=== PATIENT | male | born 1970 | race Caucasian/White ===

== ENCOUNTER 2018-10-15 19:27 | Emergency (ER) | payer BC ==
[~2018-10-15] VITALS: Ht 175.3 cm; Wt 97.0 kg
[2018-10-15 19:29] VITALS: BP 134/75
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
[2018-10-15] MEDS ORDERED: RABIES IMMUNE GLOBULIN/PF 150 UNITS/ML, 2ML IM ONE (20:00)
[2018-10-15] MEDS ORDERED: RABIES VACCINE /PF 2.5 UNITS IM-VACC ONE (20:00)
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
== END 2018-10-15 20:58 | disposition home or self-care (01) ==
LOC: ED 20:52
DX: Z20.3 Contact with and (suspected) exposure to rabies (principal)
CPT/HCPCS: 99281

== ENCOUNTER 2018-10-21 19:04 | Emergency (ER) | payer BC ==
[~2018-10-21] VITALS: Ht 175.3 cm; Wt 97.1 kg
[2018-10-21 19:16] VITALS: BP 130/77
[2018-10-21] MEDS ORDERED: RABIES IMMUNE GLOBULIN/PF 150 UNITS/ML, 2ML IM ONE (19:30)
[2018-10-21] MEDS ORDERED: RABIES VACCINE /PF 2.5 UNITS IM-VACC ONE (19:30)
[2018-10-21] MEDS ORDERED: RABIES IMMUNE GLOBULIN/PF 300 UNITS/ML,1ML IM ONE (21:00)
== END 2018-10-21 21:28 | disposition home or self-care (01) ==
LOC: ED 21:15
DX: Z20.3 Contact with and (suspected) exposure to rabies (principal); Z23 Encounter for immunization
CPT/HCPCS: 90375; 90471; 90675; 96372

== ENCOUNTER 2018-10-24 22:39 | Emergency (ER) | payer BC ==
[~2018-10-24] VITALS: Ht 175.3 cm; Wt 95.1 kg
[2018-10-24 22:40] VITALS: BP 130/82
== END 2018-10-24 23:29 | disposition home or self-care (01) ==
LOC: ED 23:05
DX: Z23 Encounter for immunization (principal)
CPT/HCPCS: 90471; 90675; 99283

== ENCOUNTER 2018-10-28 21:12 | Emergency (ER) | payer BC ==
[~2018-10-28] VITALS: Ht 175.3 cm; Wt 87.7 kg
[2018-10-28 21:15] VITALS: BP 122/73
== END 2018-10-28 22:07 | disposition home or self-care (01) ==
LOC: ED 21:37
DX: Z23 Encounter for immunization (principal); Z20.3 Contact with and (suspected) exposure to rabies
CPT/HCPCS: 90471; 90675; 99283

== ENCOUNTER 2018-11-05 23:50 | Emergency (ER) | payer BC ==
[~2018-11-05] VITALS: Ht 175.3 cm; Wt 95.6 kg
[2018-11-05 23:53] VITALS: BP 114/73
== END 2018-11-06 00:52 | disposition home or self-care (01) ==
LOC: ED 11-06 00:35
DX: Z23 Encounter for immunization (principal)
CPT/HCPCS: 90471; 90675; 99283

== ENCOUNTER 2020-03-30 10:18 | Emergency (ER) | payer BC ==
[~2020-03-30] VITALS: Ht 175.3 cm; Wt 94.6 kg
[2020-03-30] MEDS ORDERED: FAMOTIDINE 20 MG TABLET PO ONE (11:00)
[2020-03-30] MEDS ORDERED: FAMOTIDINE 20 MG TABLET ONE (11:10)
[2020-03-30 11:25] VITALS: BP 105/69
== END 2020-03-30 11:47 | disposition home or self-care (01) ==
LOC: ED 11:08
DX: T78.49XA Other allergy, initial encounter (principal); X58.XXXA Exposure to other specified factors, initial encounter
CPT/HCPCS: 99284; J7512; Q0177

== ENCOUNTER 2020-05-11 14:48 | Inpatient (IN) | payer BC ==
[~2020-05-11] VITALS: Ht 175.3 cm; Wt 90.5 kg
[2020-05-11 15:40] LABS: BASOPHILS % (AUTO) 1 % (0-1); EOSINOPHILS % (AUTO) 3 % (1-7); LYMPHOCYTES % (AUTO) 9 % (22-44); MEAN CORPUSCULAR HEMOGLOBIN 30.2 pg (27.5-34.5); MEAN CORPUSCULAR HGB CONC 33.9 g/dL (33.2-36.2); MEAN PLATELET VOLUME 9.1 fL (7.4-10.4); MONOCYTES % (AUTO) 11 % (2-9); NEUTROPHILS % (AUTO) 76 % (42-75); PLATELET COUNT 282 x10^3/uL (130-400); RED BLOOD COUNT 4.42 x10^6/uL (4.38-5.82); RED CELL DISTRIBUTION WIDTH 12.7 % (9.4-14.8)
[2020-05-11 15:45] LABS: MD NO
[2020-05-11 16:05] LABS: CHLORIDE 105 mmol/L (98-107)
[2020-05-11 16:16] LABS: ALANINE AMINOTRANSFERASE 24 U/L (12-78); ALBUMIN 2.7 g/dL (3.4-5.0); ALKALINE PHOSPHATASE 101 U/L (45-117); ANION GAP 9 mmol/L (5-15); BILIRUBIN,TOTAL 0.2 mg/dL (0.2-1.0); CALCIUM 8.6 mg/dL (8.5-10.1); CREATININE 1.15 mg/dL (0.7-1.3); TOTAL PROTEIN 7.9 g/dL (6.4-8.2); TROPONIN I < 0.015 ng/mL (0.000-0.045)
--- NOTE | 2020-05-11 16:25 | NUR ---
[employer]: PT AMBULATORY TO ROOM FROM LOBBY
--- NOTE | 2020-05-11 18:10 | NUR ---
PT AMBULATED TO BR INDEPENDENTLY AND BACK TO . PT AWAITING TO EDP. NO OTHER NEEDS AT THIS TIME.
[2020-05-11] MEDS ORDERED: SODIUM CHLORIDE 0.9%, 500ML IVBOLUS ONE (19:00)
--- NOTE | 2020-05-11 19:35 | NUR ---
PT TO CT
--- NOTE | 2020-05-11 19:50 | NUR ---
BACK FROM CT
[2020-05-11] MEDS ORDERED: OMNIPAQUE 350 MG/ML, 100ML BOTTLE ONE (19:54)
--- NOTE | 2020-05-11 20:34 | NUR ---
PT RIPPED ALL MONITOR LEADS OFF AND TORE IV FLUID LINE TO GO TO THE BR. PT FOUND WITH BLOOD DRAINING OUT OF PIV ALL OVER BATHROOM AND A TRAIL TO HIS ROOM. PIV DISCONNECTED FROM TORN LINE AND FLUSHED. PIV IS PATENT. NEW MONITOR LEADS PLACED. PT EDUCATED TO USE CALL LIGHT TO EXIT BED. PT VERBALIZES UNDERSTANDING.
--- NOTE | 2020-05-11 20:47 | NUR ---
Report from CONSTANTIN Saba. [facility].
--- NOTE | 2020-05-11 20:55 | NUR ---
At bedside introducing self to pt. Pt on 2 L oxygen satting 98%. Denies needs at this time.
--- NOTE | 2020-05-11 21:26 | NUR ---
Lab at bedside.
[2020-05-11] MEDS ORDERED: ACETAMINOPHEN 325 MG TABLET PO PRN (21:30)
[2020-05-11] MEDS: AZITHROMYCIN 500 MG in SODIUM CHLORIDE 0.9% 250 ML IV SCH (21:30)
[2020-05-11] MEDS ORDERED: DOCUSATE 100 MG CAPSULE PO PRN (21:30)
[2020-05-11] MEDS ORDERED: GUAIFENESIN/DM 200-20MG, 10ML UDC PO PRN (21:30)
[2020-05-11] MEDS ORDERED: LABETALOL 5MG/ML, 20ML IVPush PRN (21:30)
--- NOTE | 2020-05-11 21:45 | NUR ---
SATNAM swabbed and walked to lab. Cleared for regular diet-Provided pt sandwich and chips.
[2020-05-11 21:52] LABS: C-REACTIVE PROTEIN, QUANT 2.4 mg/dL (0.02-0.49)
--- NOTE | 2020-05-11 21:57 | NUR ---
Dr. Carr at bedside.
--- NOTE | 2020-05-11 22:07 | NUR ---
Azithromycin infusing per eMAR. Report called.
--- NOTE | 2020-05-11 22:15 | NUR ---
Pt being transported to room 350
[2020-05-11 22:31] LABS: D-DIMER (DIC) 0.31 ug/mlFEU (0.00-0.52)
[2020-05-11 22:34] LABS: PROTIME 10.9 Seconds (9.6-11.5)
[2020-05-11] MEDS: HEPARIN 5,000 UNITS/ML, 1ML SQ SCH (22:45)
[2020-05-11] MEDS ORDERED: LEVOFLOXACIN/PMX 500MG/100ML 100 ML IV SCH (23:00)
[2020-05-12] MEDS ORDERED: DEXAMETHASONE 4 MG/ML, 5ML IVPush ONE
[2020-05-12 01:11] VITALS: BP 112/66
[2020-05-12 04:58] LABS: BASOPHILS % (AUTO) 0 % (0-1); EOSINOPHILS % (AUTO) 1 % (1-7); LYMPHOCYTES % (AUTO) 7 % (22-44); MEAN CORPUSCULAR HEMOGLOBIN 29.8 pg (27.5-34.5); MEAN CORPUSCULAR HGB CONC 34.1 g/dL (33.2-36.2); MEAN PLATELET VOLUME 9.3 fL (7.4-10.4); MONOCYTES % (AUTO) 6 % (2-9); NEUTROPHILS % (AUTO) 87 % (42-75); PLATELET COUNT 256 x10^3/uL (130-400); RED BLOOD COUNT 4.36 x10^6/uL (4.38-5.82); RED CELL DISTRIBUTION WIDTH 12.9 % (9.4-14.8)
[2020-05-12 05:02] LABS: MD NO
[2020-05-12 05:05] LABS: ANION GAP 7 mmol/L (5-15); CALCIUM 8.5 mg/dL (8.5-10.1); CHLORIDE 107 mmol/L (98-107); CREATININE 0.98 mg/dL (0.7-1.3)
[2020-05-12 06:20] VITALS: BP 95/62
[2020-05-12] MEDS: HEPARIN 5,000 UNITS/ML, 1ML SQ SCH (06:20)
[2020-05-12 06:57] VITALS: BP 96/59
[2020-05-12] MEDS ORDERED: SODIUM CHLORIDE 0.9% 1,000ML IVBOLUS ONE (07:30)
[2020-05-12 07:47] VITALS: BP 106/68
[2020-05-12] MEDS ORDERED: CEFTRIAXONE PMX 1GM/50ML 50 ML IV SCH (08:00)
[2020-05-12] MEDS: SODIUM CHLORIDE 0.9% 1,000 ML IV SCH ×3 (08:21→23:30)
[2020-05-12] MEDS: ENOXAPARIN 40 MG/0.4 ML SQ SCH (08:28)
[2020-05-12] MEDS: NICOTINE 14MG/24 HR PATCH.TD24 TD SCH (08:29)
[2020-05-12] MEDS ORDERED: ASCORBIC ACID 500 MG TABLET PO SCH ×2 (09:00)
[2020-05-12] MEDS ORDERED: CHOLECALCIFEROL 1,000 UNIT TABLET PO SCH (09:00)
[2020-05-12] MEDS ORDERED: THIAMINE 100MG TABLET PO SCH (09:00)
[2020-05-12] MEDS ORDERED: ZINC SULFATE 220 MG CAPSULE PO SCH (09:00)
[2020-05-12] MEDS ORDERED: DEXAMETHASONE 4 MG/ML, 1ML IVPush SCH ×2 (09:00)
[2020-05-12 12:43] VITALS: BP 91/50
[2020-05-12 20:51] VITALS: BP 107/66
[2020-05-12] MEDS: AZITHROMYCIN 500 MG in SODIUM CHLORIDE 0.9% 250 ML IV SCH (21:27)
[2020-05-13 00:32] VITALS: BP 106/57
[2020-05-13 07:50] VITALS: BP 109/68
[2020-05-13] MEDS ORDERED: DOXYCYCLINE 100MG TABLET PO SCH (09:00)
[2020-05-13] MEDS: NICOTINE 14MG/24 HR PATCH.TD24 TD SCH (09:00)
[2020-05-13] MEDS: ENOXAPARIN 40 MG/0.4 ML SQ SCH (09:16)
[2020-05-13] MEDS ORDERED: DOXY100T PO (14:00)
[2020-05-13] MEDS ORDERED: METH4TAB PO (14:00)
== END 2020-05-13 15:09 | disposition home or self-care (01) | DRG 193 ==
LOC: ED 15:55 → EDIP 21:10 → 3N 22:20 → 4EST 05-12 09:43 → DCLOUNGE 05-13 15:04
PROVIDERS: ADMIT Family Medicine; ATTEND Internal Medicine
DX: J18.9 Pneumonia, unspecified organism (principal); J96.01 Acute respiratory failure with hypoxia; Z20.822 Contact with and (suspected) exposure to COVID-19; D63.8 Anemia in other chronic diseases classified elsewhere; E88.09 Other disorders of plasma-protein metabolism, not elsewhere classified; F17.200 Nicotine dependence, unspecified, uncomplicated; N40.0 Benign prostatic hyperplasia without lower urinary tract symptoms; I95.9 Hypotension, unspecified; R53.81 Other malaise; Z88.0 Allergy status to penicillin
CPT/HCPCS: 36415; 71045; 71275; 80048; 80053; 82728; 83605; 83615; 83880; 84145; 84484; 85025; 85049; 85379; 85384; 85610; 85730; 86140; 87040; 93005; 96374; 99285; G0378; J0456; J0696; J1100; J1644; J1650; J1956; Q9967; J7030; J7040; J7050; U0003

== ENCOUNTER 2020-06-02 23:53 | Emergency (ER) | payer BC ==
[~2020-06-02] VITALS: Ht 175.3 cm; Wt 92.8 kg
[~2020-06-02 23:53] MED LIST: DOXY100T PO; METH4TAB PO
[2020-06-02 23:55] VITALS: BP 125/65
[2020-06-03 00:32] LABS: BASOPHILS % (AUTO) 1 % (0-1); EOSINOPHILS % (AUTO) 9 % (1-7); LYMPHOCYTES % (AUTO) 11 % (22-44); MEAN CORPUSCULAR HEMOGLOBIN 29.8 pg (27.5-34.5); MEAN CORPUSCULAR HGB CONC 33.5 g/dL (33.2-36.2); MEAN PLATELET VOLUME 9.6 fL (7.4-10.4); MONOCYTES % (AUTO) 17 % (2-9); NEUTROPHILS % (AUTO) 62 % (42-75); PLATELET COUNT 155 x10^3/uL (130-400); RED CELL DISTRIBUTION WIDTH 14.3 % (9.4-14.8)
[2020-06-03 00:33] LABS: MD NO
[2020-06-03 00:40] LABS: ALBUMIN 2.8 g/dL (3.4-5.0); ANION GAP 7 mmol/L (5-15); CHLORIDE 112 mmol/L (98-107); CREATININE 0.91 mg/dL (0.7-1.3)
[2020-06-03] MEDS ORDERED: DEXAMETHASONE 4 MG TABLET ONE (00:54)
[2020-06-03] MEDS ORDERED: DEXAMETHASONE 4 MG TABLET PO ONE (01:00)
--- NOTE | 2020-06-03 01:06 | NUR ---
Patient given discharge instructions and they have confirmed that they understand the instructions. Patient ambulatory with steady gait.
== END 2020-06-03 01:08 | disposition home or self-care (01) ==
LOC: ED 06-03 00:45
DX: L04.0 Acute lymphadenitis of face, head and neck (principal); J02.9 Acute pharyngitis, unspecified; Z87.891 Personal history of nicotine dependence
CPT/HCPCS: 36415; 80048; 82040; 85025; 99283

== ENCOUNTER 2020-08-05 22:03 | Inpatient (IN) | payer BC ==
[~2020-08-05] VITALS: Ht 175.3 cm; Wt 94.6 kg
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
--- NOTE | 2020-08-05 22:43 | NUR ---
REPORT TO CONSTANTIN MADRID TO ASSUME CARE OF PT. AT THIS TIME.
[2020-08-05] MEDS ORDERED: DIPHENHYDRAMINE 25 MG CAPSULE PO ONE (23:00)
[2020-08-05] MEDS ORDERED: DIPHENHYDRAMINE 25 MG CAPSULE ONE (23:05)
--- NOTE | 2020-08-05 23:13 | NUR ---
PT. MEDICATED PER MAY. X-RAY AT BS.
--- NOTE | 2020-08-05 23:25 | NUR ---
REASSUMING CARE OF PT. FROM CONSTANTIN MADRID AT THIS TIME.
[2020-08-05 23:38] LABS: BASOPHILS % (AUTO) 0 % (0-1); EOSINOPHILS % (AUTO) 1 % (1-7); LYMPHOCYTES % (AUTO) 9 % (22-44); MEAN CORPUSCULAR HEMOGLOBIN 30.9 pg (27.5-34.5); MEAN CORPUSCULAR HGB CONC 34.7 g/dL (33.2-36.2); MEAN PLATELET VOLUME 8.7 fL (7.4-10.4); MONOCYTES % (AUTO) 15 % (2-9); NEUTROPHILS % (AUTO) 74 % (42-75); PLATELET COUNT 225 x10^3/uL (130-400); RED BLOOD COUNT 4.71 x10^6/uL (4.38-5.82); RED CELL DISTRIBUTION WIDTH 13.6 % (9.4-14.8)
[2020-08-05 23:39] LABS: MD NO
[2020-08-05 23:52] LABS: ALBUMIN 2.9 g/dL (3.4-5.0); ANION GAP 6 mmol/L (5-15); CALCIUM 8.6 mg/dL (8.5-10.1); CHLORIDE 103 mmol/L (98-107); CREATININE 1.02 mg/dL (0.7-1.3)
[2020-08-05 23:55] LABS: TROPONIN I < 0.015 ng/mL (0.000-0.045)
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
[2020-08-06] MEDS ORDERED: ACETAMINOPHEN 500 MG TABLET ONE (01:03)
[2020-08-06] MEDS ORDERED: ACETAMINOPHEN 500 MG TABLET PO ONE (01:30)
[2020-08-06] MEDS ORDERED: AZITHROMYCIN 500 MG in SODIUM CHLORIDE 0.9% 250 ML IV ONE (01:30)
[2020-08-06] MEDS ORDERED: CEFTRIAXONE 1,000 MG in DEXTROSE 5% 50 ML IVPB ONE (01:30)
--- NOTE | 2020-08-06 01:39 | NUR ---
piv established, 1st set of blood cultures drawn. pt undestanding of admit and accepting of poc
--- NOTE | 2020-08-06 01:47 | NUR ---
report given to veronica arnold
--- NOTE | 2020-08-06 02:04 | NUR ---
ABX HUNG AFTER BLOOD CULTURES X 2
--- NOTE | 2020-08-06 02:37 | NUR ---
hosp at bedside
[2020-08-06] MEDS ORDERED: ACETAMINOPHEN 325 MG TABLET PO PRN (03:00)
[2020-08-06] MEDS ORDERED: ONDANSETRON 2MG/ML, 2ML IVPush PRN (03:00)
[2020-08-06] MEDS: CEFTRIAXONE 1,000 MG in DEXTROSE 5% 50 ML IVPB SCH (03:00)
[2020-08-06] MEDS ORDERED: LABETALOL 5MG/ML, 20ML IVPush PRN (03:00)
[2020-08-06 03:11] VITALS: BP 107/65
[2020-08-06] MEDS: ENOXAPARIN 40 MG/0.4 ML SQ SCH (04:07)
[2020-08-06] MEDS: AZITHROMYCIN 500 MG in SODIUM CHLORIDE 0.9% 250 ML IV SCH (04:07)
[2020-08-06] MEDS: DEXAMETHASONE 4 MG/ML, 1ML IVPush SCH (04:08)
[2020-08-06 08:30] VITALS: BP 114/71
[2020-08-06 13:45] VITALS: BP 132/78
[2020-08-06 19:19] VITALS: BP 106/69
[2020-08-07 01:13] VITALS: BP 102/65
[2020-08-07] MEDS: CEFTRIAXONE 1,000 MG in DEXTROSE 5% 50 ML IVPB SCH (03:09)
[2020-08-07] MEDS: ENOXAPARIN 40 MG/0.4 ML SQ SCH (04:06)
[2020-08-07] MEDS: AZITHROMYCIN 500 MG in SODIUM CHLORIDE 0.9% 250 ML IV SCH (04:06)
[2020-08-07 05:22] LABS: BASOPHILS % (AUTO) 0 % (0-1); EOSINOPHILS % (AUTO) 0 % (1-7); LYMPHOCYTES % (AUTO) 8 % (22-44); MEAN CORPUSCULAR HEMOGLOBIN 30.5 pg (27.5-34.5); MEAN CORPUSCULAR HGB CONC 34.3 g/dL (33.2-36.2); MEAN PLATELET VOLUME 9.3 fL (7.4-10.4); MONOCYTES % (AUTO) 12 % (2-9); NEUTROPHILS % (AUTO) 81 % (42-75); PLATELET COUNT 239 x10^3/uL (130-400); RED BLOOD COUNT 4.73 x10^6/uL (4.38-5.82); RED CELL DISTRIBUTION WIDTH 13.7 % (9.4-14.8)
[2020-08-07 05:27] LABS: CHLORIDE 108 mmol/L (98-107)
[2020-08-07 05:34] LABS: ANION GAP 8 mmol/L (5-15); CALCIUM 8.6 mg/dL (8.5-10.1); CREATININE 0.78 mg/dL (0.7-1.3)
[2020-08-07 05:38] LABS: MD NO
[2020-08-07 06:31] VITALS: BP 106/67
[2020-08-07] MEDS: DEXAMETHASONE 4 MG/ML, 1ML IVPush SCH (09:00)
[2020-08-07] MEDS ORDERED: AZIT500T10 PO (11:04)
[2020-08-07] MEDS ORDERED: METH4TAB2 PO (11:04)
[2020-08-07] MEDS ORDERED: CEFD300C37 PO (11:04)
[2020-08-07 12:39] VITALS: BP 110/66
== END 2020-08-07 15:22 | disposition home or self-care (01) | DRG 193 ==
LOC: ED 22:33 → EDIP 08-06 02:25 → 4EST 08-06 03:38 → DCLOUNGE 08-07 15:18
PROVIDERS: ADMIT Family Medicine; ATTEND Family Medicine
DX: J18.9 Pneumonia, unspecified organism (principal); J96.01 Acute respiratory failure with hypoxia; Z20.822 Contact with and (suspected) exposure to COVID-19; Z87.891 Personal history of nicotine dependence; Z88.0 Allergy status to penicillin
CPT/HCPCS: 36415; 71045; 80048; 82040; 83880; 84484; 85025; 85379; 87040; 93005; G0378; J0456; J0696; J1100; J1650; U0005; J7050; Q0163; U0003